=== PATIENT | female | born 1995 | race Caucasian/White ===

== ENCOUNTER 2017-01-25 18:02 | Emergency (ER) | payer OTHER ==
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
== END 2017-01-25 18:30 | disposition home or self-care (01) ==
LOC: ER 18:02
DX: T23.111A Burn of first degree of right thumb (nail), initial encounter (principal); S60.211A Contusion of right wrist, initial encounter; W22.10XA Striking against or struck by unspecified automobile airbag, initial encounter; Y92.410 Unspecified street and highway as the place of occurrence of the external cause